=== PATIENT | male | born 1965 ===

== ENCOUNTER 2017-06-05 01:43 | Emergency (ER) | payer OTHER ==
[2017-06-05 01:57] VITALS: BP 119/66; PULSE 87; RESP 17; TEMP 98.4; O2SAT 98
[2017-06-05] MEDS ORDERED: Oxycodone/Acetaminophen 5/325 mg Tab ONE (02:37)
[2017-06-05] MEDS ORDERED: Oxycodone/Acetaminophen 5/325 mg Tab PO ONE (02:38)
--- NOTE | 2017-06-05 03:36 | ED PDOC ---
HPI: Male Pain Time Seen by Provider: 06/05/17 01:45 Chief Complaint (Nursing): Groin Pain Chief Complaint (Provider): Left testicular pain History Per: Patient History/Exam Limitations: no limitations Onset/Duration Of Symptoms: Days Current Symptoms Are (Timing): Gone Now Additional Complaint(s): Patient is a 51 year old male with no past medical history presenting to the emergency department for returning acute left testicular pain. Reports that pain initially started yesterday, for which he went to [facility] where he underwent an ultrasound and was diagnosed with epididymitis (according to hospital's paperwork), for which he was given a dose of antibiotics and a prescription that was not picked up. Tonight the pain returned but resolved prior to arrival at the ED. Denies fever, vomiting, penile discharge, dysuria, abdominal pain, hematuria, allergies, or sexual activity. PCP: none provided. Past Medical History Reviewed: Historical Data, Nursing Documentation, Vital Signs Vital Signs: Last Vital Signs Temp 98.4 F 06/05/17 01:52 Pulse 87 06/05/17 01:52 Resp 17 06/05/17 01:52 BP 119/66 06/05/17 01:52 Pulse Ox 98 06/05/17 01:52 - Medical History PMH: No Chronic Diseases - Surgical History Surgical History: No Surg Hx - Family History Family History: States: Unknown Family Hx - Social History Current smoker - smoking cessation education provided: No Alcohol: None Drugs: Denies - Allergies Allergies/Adverse Reactions: Allergies Allergy/AdvReac Type Severity Reaction Status Date / Time No Known Allergies Allergy Verified 06/05/17 01:57 Review of Systems ROS Statement: Except As Marked, All Systems Reviewed And Found Negative Constitutional: Negative for: Fever Gastrointestinal: Negative for: Vomiting, Abdominal Pain Genitourinary Male: Positive for: Other (Left testicular pain). Negative for: Dysuria, Hematuria, Penile Discharge Physical Exam - Reviewed Nursing Documentation Reviewed: Yes Vital Signs Reviewed: Yes - Physical Exam Appears: Positive for: Well (pt resting comfortably in bed exhibiting no distress), Non-toxic, No Acute Distress Head Exam: Positive for: ATRAUMATIC, NORMAL INSPECTION, NORMOCEPHALIC Skin: Positive for: Normal Color, Warm, Dry Neck: Positive for: Normal, Supple Cardiovascular/Chest: Positive for: Regular Rate, Rhythm. Negative for: Murmur Respiratory: Positive for: Normal Breath Sounds. Negative for: Accessory Muscle Use, Respiratory Distress Gastrointestinal/Abdominal: Positive for: Normal Exam, Soft Male Genital Exam: Positive for: erythema (sligth erythema and swelling on left testicle. otherwise no penile dc, no scrotal elevation no cellulitis. exam performed in presence of RN) Back: Positive for: Normal Inspection Extremity: Positive for: Normal ROM. Negative for: Pedal Edema Neurologic/Psych: Positive for: Alert, Oriented - ECG O2 Sat by Pulse Oximetry: 98 (RA) Pulse Ox Interpretation: Normal Medical Decision Making Medical Decision Making: Time: 02:38 Initial Plan: epidydimitis -Oxycodone 1 tab PO -Reevaluation pt feels better after med. pt instructed to take anbiotic at home and follow up with urologist as outpt. return with any worsening symptoms Scribe Attestation: Documented by Traci Ramirez, acting as a scribe for Rome Mclaughlin MD Provider Scribe Attestation: All medical record entries made by the Scribe were at my direction and personally dictated by me. I have reviewed the chart and agree that the record accurately reflects my personal performance of the history, physical exam, medical decision making, and the department course for this patient. I have also personally directed, reviewed, and agree with the discharge instructions and disposition. Disposition - Clinical Impression Clinical Impression: Acute epididymitis - Patient ED Disposition Is Patient to be Admitted: No Counseled Patient/Family Regarding: Studies Performed, Diagnosis, Need For Followup - Disposition Referrals: [facility] [Outside] Keshawn Hernandez MD [Staff Provider] - Disposition: Routine/Home Disposition Time: 03:00 Condition: IMPROVED Additional Instructions: follow up with your urology appointment without fail tomorrow fill the antibiotic prescription return to the ED with any worsening or concerning symptoms Instructions: Epididymitis (ED), Testicle Pain (ED) Forms: [employer] ([place])
== END 2017-06-05 03:45 | disposition home or self-care (01) ==
LOC: H.ER 01:43
DX: N45.1 Epididymitis (principal)